=== PATIENT | female | born 2000 | race African-American/Black ===

== ENCOUNTER 2025-01-24 17:53 | Emergency (ER) | payer OTHER, SELFPAY ==
[2025-01-24] MEDS ORDERED: Ibuprofen 200 MG TAB ONE (18:35)
[2025-01-24 18:56] LABS: Bacteria/HPF Rare-Few HPF (None Seen); Glucose, Urine (Dipstick) Negative (Negative); Leukocyte Negative (Negative); Protein, Urine (Dipstick) 30 mg/dL (Neg-Trace); Specific Gravity, Urine 1.020 (1.005-1.030)
[2025-01-24 18:57] LABS: Pregnancy Test - Urine (BHCG) Negative (Negative); Pregu Control Background? CLEAR/WHITE (CLR/WHITE); Pregu Control Bar Appear? YES (CONTROL BAR); Urine Culture Reflex No No
[2025-01-24 19:00] LABS: ALT (SGPT) 8 U/L (Less than 34); AST (SGOT) 20 U/L (11-34); Albumin 4.2 g/dL (3.1-4.5); Alkaline Phosphatase 58 U/L (40-110); Anion Gap 14 mmol/L (10-20); BUN (Urea Nitrogen) 7 mg/dL (7.0-18.7); Bilirubin, Total 0.4 mg/dL (0.3-1.2); Calc. Creatinine Clearance 0 mL/min (70-130); Calcium 8.9 mg/dL (7.8-10.44); Carbon Dioxide 23 mmol/L (22-29); Chloride 105 mmol/L (98-107); Globulin 2.9 g/dL (2.4-3.5); Glucose 94 mg/dL (70-105); Hematocrit 38.8 % (36.0-47.0); Hemoglobin 13.8 g/dL (12.0-16.0); Mean Corpuscular Volume 88.7 fl (78.0-98.0); Potassium 4.0 mmol/L (3.5-5.1); Red Blood Cell (RBC) Count 4.38 mill/uL (4.20-5.40); Sodium 138 mmol/L (136-145); White Blood Cell (WBC) Count 4.2 10x3/uL (4.8-10.8)
[2025-01-24 19:01] LABS: #Basophils 0.1 thou/uL (0.0-0.2); #Eosinophils 0.0 thou/uL (0.0-0.7); #Lymphocytes 1.2 thou/uL (1.20-3.40); #Monocytes 0.4 thou/uL (0.11-0.59); #Neutrophils 2.4 thou/uL (1.40-6.50); %Basophils 3.0 % (0.0-1.0); %Eosinophils 1.1 % (0.0-10.0); %Lymphocytes 29.3 % (21.0-51.0); %Monocytes 10.5 % (0.0-10.0); %Neutrophils 56.3 % (42.0-75.0); Manual Diff?? NO; Mean Corpuscular Hemoglobin 31.4 pg (27.0-31.0); Platelet Count 266 10x3/uL (130-400)
[2025-01-24 19:02] LABS: Cocaine Metabolite Screen Negative (Negative); THC/Cannabinoid Screen Negative (Negative); Tricyclic Screen Negative (Negative)
[2025-01-24] MEDS ORDERED: Azithromycin 250 MG TAB ONE (21:24)
[2025-01-24] MEDS ORDERED: cefTRIAXone (ROCEPHIN) 1 GM VIAL ONE (21:25)
[2025-01-24] MEDS ORDERED: Lidocaine 1% (PF) 30 ML VIAL ONE (21:25)
[2025-01-25 21:14] LABS: Chlam.trachomatis by PCR,Urine Not Detected (NotDetected); GC N.gonorrhoeae PCR,UrineVOID Not Detected (NotDetected)
== END 2025-01-24 21:35 | disposition home or self-care (01) ==
LOC: NAV ERS 17:53
DX: N72 Inflammatory disease of cervix uteri (principal); R25.1 Tremor, unspecified
CPT/HCPCS: 36415; 70450; 74177; 80053; 80306; 81001; 81025; 85025; 87491; 87591; 96372; J0696